=== PATIENT | male | born 1975 | race Caucasian/White ===

== ENCOUNTER 2021-08-07 21:05 | Emergency (ER) | payer OTHER ==
[~2021-08-07] VITALS: Ht 177.8 cm; Wt 112.3 kg
[2021-08-07] MEDS ORDERED: CEPH500C PO (21:35)
--- NOTE | 2021-08-07 21:35 | PHYS DOC ---
Adult General HPI HPI Patient is a 46-year-old male who presents with dental pain that started a couple days ago, states he has generally bad dentition and it hurt before but then stopped. States it started hurting recently, 7 out of 10, sharp in nature. States he had not had a chance to see a dentist yet. States he took some Tylenol earlier. Denies pain or trouble swallowing, headache, fevers, chest pain or shortness of breath, abdominal pain, nausea, vomiting. Review of Systems Review of Systems Review of systems otherwise unremarkable except noted in HPI Physical Exam Physical Exam Constitutional: Well developed, well nourished, no acute distress, non-toxic appearance. [] HENT: Normocephalic, atraumatic, oropharynx moist, no oral exudates, Neck: Normal range of motion, no tenderness, supple, no stridor, no lymphadenopathy. [] Neurologic: Alert and oriented X 3, normal motor function, normal sensory function, no focal deficits noted. [] Psychologic: Affect normal, judgement normal, mood normal. [] EKG EKG [] Radiology/Procedures Radiology/Procedures [] Heart Score C/O Chest Pain: No Risk Factors: Risk Factors: DM, Current or recent (<one month) smoker, HTN, HLP, family history of CAD, obesity. Risk Scores: Risk Factors: DM, Current or recent (<one month) smoker, HTN, HLP, family history of CAD, obesity. Course & Med Decision Making Course & Med Decision Making Patient is a 46-year-old male who presents with dental pain Vital signs nonconcerning. Physical exam noted above. Started on antibiotics. Given pain medicine. Discussed pain management at home. Given contact information for local free dental clinics in the emergency dentist. Advised to call first thing in the morning to set up an immediate follow-up to discuss need for fillings versus root canal versus extraction Gave return precautions to the ED. Patient grateful, verbalized understanding agree with plan of discharge Jose Disclaimer Jose Disclaimer This electronic medical record was generated, in whole or in part, using a voice recognition dictation system. Departure Departure: Impression: Primary Impression: Pain, dental Disposition: HOME / SELF CARE / HOMELESS Condition: STABLE Referrals: TOM MASON MD (PCP) Patient Instructions: Dental Pain Additional Instructions: Thank you for coming into the emergency department tonight and allowing us to take care of you. Please read the attached information carefully to go over things we discussed. Please begin a Tylenol, ibuprofen and Benadryl regimen at home. Please use Orajel as we discussed by placing it on a small piece of cotton, put it on your tooth and hold it there for 5 to 10 minutes. It is very important you follow-up in the morning with a dentist and you are given contact information for local free dentist and the emergency dentist who will see you tomorrow. Please take your antibiotics as prescribed. Please contact with new or concerning symptoms as we discussed Scripts Cephalexin (KEFLEX) 500 Mg Capsule 1 CAP PO BID for dental wound for 3 Days, #6 CAP Prov: JODY PRUITT MD 08/07/21 JODY PRUITT MD August 07, 2021 21:35
[2021-08-07] MEDS: CEPHALEXIN 250 MG CAPSULE PO ONE (21:45)
[2021-08-07] MEDS: oxyCODONE/APAP 5/325 1 TAB TABLET PO ONE (21:45)
[2021-08-07] MEDS ORDERED: CEPHALEXIN 250 MG CAPSULE ONE (21:53)
[2021-08-07] MEDS ORDERED: oxyCODONE/APAP 5/325 1 TAB TABLET ONE (21:54)
[2021-08-07 22:00] VITALS: BP 147/102
== END 2021-08-07 22:00 | disposition home or self-care (01) ==
LOC: ER 21:05
DX: K08.89 Other specified disorders of teeth and supporting structures (principal)
CPT/HCPCS: 99283